=== PATIENT | female | born 1950 | race African-American/Black ===

== ENCOUNTER 2018-11-12 20:21 | Observation (INO) ==
[2018-11-12] MEDS ORDERED: MethylPREDNISolone Sod Succinate Inj 125 MG/2 ML Vial IV.PUSH ONE (21:07)
--- NOTE | 2018-11-12 21:17 | ED ---
HPI General Chief complaint: Chest Pain Stated complaint: poss allergic reaction, hives, chest pain Time Seen by Provider: 11/12/18 20:59 History of Present Illness HPI narrative: 67-year-old female with history of hyperlipidemia presents for evaluation. She reports that she developed a substernal chest pressure at 9:30 AM this morning while she was at [employer]. Initially she thought that may be something was stuck in her throat. She was able to swallow water with no difficulty. The chest pressure has persisted throughout the day. Nothing seems to make it better or worse. She reports that she has taken a total of 162 mg of aspirin. She is denying any shortness of breath, cough, congestion, abdominal pain, diaphoresis, nausea, vomiting. Denies any leg swelling. She has never experienced this type of chest pressure before. No personal history of cardiac disease or known family history. She believes that she had a normal stress test approximately 17 or 18 years ago. In addition the patient is complaining of a pruritic rash which just started this evening. Rash is primarily on the face and the upper chest wall and in the bilateral axilla. The rash is itchy and she tried using [id number] Benadryl cream with no relief. She reports that 2 days ago she ate crab cakes but denies any other dietary changes. Denies any new medications or creams or lotions or detergents. Denies any swelling of the lips or the tongue she has no other complaints at this time. Related Data Home Medications Medication Instructions Recorded Confirmed omeprazole 40 mg PO DAILY 11/12/18 11/12/18 Allergies Allergy/AdvReac Type Severity Reaction Status Date / Time No Known Allergies Allergy Verified 11/12/18 20:32 Review of Systems ROS: all other systems reviewed are negative PMFSH Medical History Medical History GERD (gastroesophageal reflux disease) (Acute) Hx of hysterectomy (Acute) Surgical History Surgical History H/O abdominoplasty (Acute) Hx of section (Acute) Previous back surgery (Acute) Social History Social History Substance History: No History of Abuse Second Hand Smoke Exposure: No Smoking Status: Never smoker How Often Do You Have a Drink Containing Alcohol: 2 to 4 times a month Recent Travel in [facility] within the Last 8 Weeks: No Recent Out of Country Travel within the Last 8 Weeks: No Exam Narrative Exam Narrative: GENERAL: Pleasant well-developed well-nourished female no acute distress SKIN: Warm and dry. There is several scattered wheals noted on the forehead, in the axilla bilaterally in the upper chest wall. No vesicles, no pustules, no petechiae, no purpura HEAD: Atraumatic. Normocephalic. EYES: Pupils equal and round. No scleral icterus. No injection or drainage. ENT: No nasal bleeding or discharge. Mucous membranes pink and moist. No swelling of the lips, tongue, uvula. No sublingual edema. Voice is not hoarse or muffled no stridor or drooling. NECK: Trachea midline. No JVD. CARDIOVASCULAR: Regular rate and rhythm. No murmur appreciated. RESPIRATORY: No accessory muscle use. Clear to auscultation. Breath sounds equal bilaterally. No crackles no wheezing or rhonchi. GASTROINTESTINAL: Abdomen soft, non-tender, nondistended. Hepatic and splenic margins not palpable. MUSCULOSKELETAL: No obvious deformities. No clubbing. No cyanosis. No edema. NEUROLOGICAL: Awake and alert. No obvious cranial nerve deficits. Motor grossly within normal limits. Normal speech. Course Initial Documented Vital Signs Temperature 97.1 F L 11/12/18 20:25 Pulse Rate 60 11/12/18 20:25 Respiratory Rate 20 11/12/18 20:25 Blood Pressure 150/69 H 11/12/18 20:25 Pulse Oximetry 98 11/12/18 20:25 Last Documented Vital Signs Temperature 97.8 F 11/13/18 04:00 Pulse Rate 54 L 11/13/18 04:00 Respiratory Rate 18 11/13/18 04:00 Blood Pressure 113/60 11/13/18 04:00 Pulse Oximetry 96 11/13/18 04:00 Medical Decision Making FIONA Attestation FIONA supervised visit: Yes Attestation: I, Dr. Fonseca, have reviewed the advance practice practitioner's documentation and am in agreement, met with the patient face to face, made the diagnosis, and the medical decision making was done by me. The patient was initially evaluated by Buddy, the FIONA. Please see their complete history and physical. *My assessment and Findings: The patient presents with history of chest pain that began earlier today. The patient additionally in the evening developed an itchy rash. She denies having any shortness of breath. She denies having any tongue or throat swelling. The patient's examination was remarkable for what appeared to be urticaria. Cardiovascular was regular rate and rhythm without murmurs, gallops, or rubs. Lungs were clear to auscultation bilaterally. During the course of the patient's emergency department visit, the patient's history, examination, and differential diagnosis were reviewed with the patient. The patient was placed on a front desk monitor with oximetry and frequent blood pressure monitoring. The patient had IV access obtained and blood work sent for analysis. The patient was initially provided aspirin 162 mg p.o. x1. The patient was given Solu-Medrol 125 mg IV, Benadryl 50 mg IV. The patient's diagnostic studies were reviewed and remarkable for a white count of 5.5, hemoglobin 13.2, platelets 203 with monocytes 9.3, PT PTT within normal limits, chemistry is remarkable for an albumin of 3.3, initial set of cardiac enzymes are negative. CHEST X-RAY: Shows no acute cardiopulmonary disease. The patient's results were discussed with the patient, including the plan of care. I explained that further testing and/ or monitoring is indicated based on the patient's history, examination, and/ or laboratory findings. Therefore, I recommended admission for additional evaluation. The patient expressed understanding and was agreeable with this plan. The patient was admitted to the hospital in stable condition and sent to a bed under the care of the [facility]. [facility] Narrative Medical decision making narrative: The patient was placed on ECG monitoring pulse oximetry. Twelve-lead EKG was obtained revealing sinus rhythm with no acute ST elevation. Lab work, chest x-ray obtained. The patient was given additional 162 mg of aspirin. She was given Solu-Medrol and Benadryl for wheals noted on the upper chest wall and forehead and bilateral axilla. Upon reexamination her chest pressure has resolved. Her initial lab work and imaging studies are reassuring. The etiology of her chest pressure is unknown. Therefore at this point in time the plan is to admit her into the chest pain center for serial cardiac enzymes and rule out purposes. She is agreeable. Medical Screen Exam Complete: Yes Emergency Medical Condition: Yes Differential Diagnosis Differential Diagnosis: Angina, acute coronary syndrome, gastritis, pericarditis , myocarditis, aortic dissection, pneumothorax, hemothorax Lab Data Result diagrams: 11/12/18 20:50 11/12/18 20:50 Lab Results 11/12/18 11/12/1811/12/18 Range/Units 20:50 20:50 20:50 WBC 5.5 (4.0-11.0) th/mm3 RBC 4.72 (4.00-5.30) mil/mm3 Hgb 13.2 (11.6-15.3) gm/dL Hct 39.7 (35.0-46.0) % MCV 84.1 (80.0-100.0) fL MCH 28.0 (27.0-34.0) pg MCHC 33.3 (32.0-36.0) % RDW 14.3 (11.6-17.2) % Plt Count 203 (150-450) th/mm3 MPV 9.5 (7.0-11.0) fL Neut % (Auto) 47.4 (16.0-70.0) % Lymph % (Auto) 40.5 (9.0-44.0) % Rock % (Auto) 9.3 H (0.0-8.0) % Eos % (Auto) 2.3 (0.0-4.0) % Baso % (Auto) 0.5 (0.0-2.0) % Neut # (Auto) 2.6 (1.8-7.7) th/mm3 Lymph # (Auto) 2.2 (1.0-4.8) th/mm3 Rock # (Auto) 0.5 (0.0-0.9) th/mm3 Eos # (Auto) 0.1 (0.0-0.4) th/mm3 Baso # (Auto) 0.0 (0.0-0.2) th/mm3 WBC Differential . Differential Comment Auto diff final PT 10.1 (9.8-11.6) sec INR 1.0 Ratio APTT 24.9 (23.4-31.7) sec Sodium 140 (136-145) meq/L Potassium 4.0 (3.5-5.1) meq/L Chloride 103 (98-107) meq/L Carbon Dioxide 27.5 (21.0-32.0) meq/L Anion Gap 10 (5-15) meq/L BUN 15 (7-18) mg/dL Creatinine 0.68 (0.50-1.00) mg/dL Estimated GFR Greater than 89 (>89) mL/min Random Glucose 93 (74-106) mg/dL Calcium 9.2 (8.5-10.1) mg/dL Magnesium 2.2 (1.5-2.5) mg/dL Total Bilirubin 0.3 (0.2-1.0) mg/dL AST 23 (15-37) U/L ALT 30 (10-53) U/L Alkaline Phosphatase 84 (45-117) U/L Total Creatine Kinase 173 (26-192) U/L CK-MB (CK-2) 1.7 (0.5-3.6) ng/mL Troponin I Less than 0.02 L (0.02-0.05) ng/mL Total Protein 7.9 (6.4-8.2) g/dL Albumin 3.3 L (3.4-5.0) g/dL 11/12/18 11/12/18 11/12/18 Range/Units 20:50 20:50 20:50 WBC (4.0-11.0) th/mm3 RBC (4.00-5.30) mil/mm3 Hgb (11.6-15.3) gm/dL Hct (35.0-46.0) % MCV (80.0-100.0) fL MCH (27.0-34.0) pg MCHC (32.0-36.0) % RDW (11.6-17.2) % Plt Count (150-450) th/mm3 MPV (7.0-11.0) fL Neut % (Auto) (16.0-70.0) % Lymph % (Auto) (9.0-44.0) % Rock % (Auto) (0.0-8.0) % Eos % (Auto) (0.0-4.0) % Baso % (Auto) (0.0-2.0) % Neut # (Auto) (1.8-7.7) th/mm3 Lymph # (Auto) (1.0-4.8) th/mm3 Rock # (Auto) (0.0-0.9) th/mm3 Eos # (Auto) (0.0-0.4) th/mm3 Baso # (Auto) (0.0-0.2) th/mm3 WBC Differential Differential Comment PT (9.8-11.6) sec INR Ratio APTT (23.4-31.7) sec Sodium (136-145) meq/L Potassium (3.5-5.1) meq/L Chloride (98-107) meq/L Carbon Dioxide (21.0-32.0) meq/L Anion Gap (5-15) meq/L BUN (7-18) mg/dL Creatinine (0.50-1.00) mg/dL Estimated GFR (>89) mL/min Random Glucose (74-106) mg/dL Calcium (8.5-10.1) mg/dL Magnesium Cancelled (1.5-2.5) mg/dL Total Bilirubin (0.2-1.0) mg/dL AST (15-37) U/L ALT (10-53) U/L Alkaline Phosphatase (45-117) U/L Total Creatine Kinase Cancelled (26-192) U/L CK-MB (CK-2) (0.5-3.6) ng/mL Troponin I Cancelled (0.02-0.05) ng/mL Total Protein (6.4-8.2) g/dL Albumin (3.4-5.0) g/dL 11/13/18 11/13/18 Range/Units 01:00 02:30 WBC (4.0-11.0) th/mm3 RBC (4.00-5.30) mil/mm3 Hgb (11.6-15.3) gm/dL Hct (35.0-46.0) % MCV (80.0-100.0) fL MCH (27.0-34.0) pg MCHC (32.0-36.0) % RDW (11.6-17.2) % Plt Count (150-450) th/mm3 MPV (7.0-11.0) fL Neut % (Auto) (16.0-70.0) % Lymph % (Auto) (9.0-44.0) % Rock % (Auto) (0.0-8.0) % Eos % (Auto) (0.0-4.0) % Baso % (Auto) (0.0-2.0) % Neut # (Auto) (1.8-7.7) th/mm3 Lymph # (Auto) (1.0-4.8) th/mm3 Rock # (Auto) (0.0-0.9) th/mm3 Eos # (Auto) (0.0-0.4) th/mm3 Baso # (Auto) (0.0-0.2) th/mm3 WBC Differential Differential Comment PT (9.8-11.6) sec INR Ratio APTT (23.4-31.7) sec Sodium (136-145) meq/L Potassium (3.5-5.1) meq/L Chloride (98-107) meq/L Carbon Dioxide (21.0-32.0) meq/L Anion Gap (5-15) meq/L BUN (7-18) mg/dL Creatinine (0.50-1.00) mg/dL Estimated GFR (>89) mL/min Random Glucose (74-106) mg/dL Calcium (8.5-10.1) mg/dL Magnesium (1.5-2.5) mg/dL Total Bilirubin (0.2-1.0) mg/dL AST (15-37) U/L ALT (10-53) U/L Alkaline Phosphatase (45-117) U/L Total Creatine Kinase 164 159 (26-192) U/L CK-MB (CK-2) (0.5-3.6) ng/mL Troponin I Less than 0.02 L Less than 0.02 L (0.02-0.05) ng/mL Total Protein (6.4-8.2) g/dL Albumin (3.4-5.0) g/dL Imaging Data Radiologist's impression: Chest X-Ray 11/12/18 21:07 CONCLUSION: The lungs are clear. Discharge Plan Discharge Disposition Patient Disposition: ED Admit(ED Internal Use Only) Discharge Condition Condition: Stable Discharge Order Discharge Orders: ED Use Only Admit Order (Routine); Ordered 11/12/18 Ordered By: Buddy Morin Discharge Details Diagnosis: Chest pain, Hives Physicians Team ED Provider: Brooklynn Fonseca ED Midlevel Provider: Buddy Morin Primary Care Provider: Barbara Ortega Attending Provider: Luis Carlton Other Providers: [employer] Status ED Status: Left Department Discharge Information Discharge Date/Time: 11/12/18 23:20
--- NOTE | 2018-11-12 21:20 | XR ---
EXAM DATE: 11/12/2018 9:16 PM EST AGE/SEX: 67 years / Female INDICATIONS: Chest pain CLINICAL DATA: This is the patient's initial encounter. Patient reports that signs and symptoms have been present for 1 day and indicates a pain score of 5/10. MEDICAL/SURGICAL HISTORY: None. None. COMPARISON: No prior exams available for comparison. FINDINGS: A single AP view of the chest demonstrates the lungs to be symmetrically aerated without evidence of mass, infiltrate or effusion. The cardiomediastinal contours are unremarkable. Osseous structures a re intact. CONCLUSION: The lungs are clear. Electronically signed by: Chano Cabrera MD Board Certified Radiologist 11/12/2018 9:19 PM EST
[2018-11-12 21:29] LABS: Baso % (Auto) 0.5 % (0.0-2.0); Eos # (Auto) 0.1 th/mm3 (0.0-0.4); Eos % (Auto) 2.3 % (0.0-4.0); Hematocrit 39.7 % (35.0-46.0); Hemoglobin 13.2 gm/dL (11.6-15.3); Lymph # (Auto) 2.2 th/mm3 (1.0-4.8); Lymph % (Auto) 40.5 % (9.0-44.0); Mean Corpuscular HGB Conc 33.3 % (32.0-36.0); Mean Corpuscular Volume 84.1 fL (80.0-100.0); Mean Platelet Volume 9.5 fL (7.0-11.0); Mono # (Auto) 0.5 th/mm3 (0.0-0.9); Mono % (Auto) 9.3 % (0.0-8.0); Neut # (Auto) 2.6 th/mm3 (1.8-7.7); Neut % (Auto) 47.4 % (16.0-70.0); Platelet Count 203 th/mm3 (150-450); Red Blood Count 4.72 mil/mm3 (4.00-5.30); Red Cell Distribution Width 14.3 % (11.6-17.2); White Blood Count 5.5 th/mm3 (4.0-11.0)
[2018-11-12 21:46] LABS: Albumin 3.3 g/dL (3.4-5.0); Anion Gap 10 meq/L (5-15); Aspartate Aminotransferase 23 U/L (15-37); Blood Urea Nitrogen 15 mg/dL (7-18); Calcium 9.2 mg/dL (8.5-10.1); Carbon Dioxide 27.5 meq/L (21.0-32.0); Chloride 103 meq/L (98-107); Glomerular Filtration Rate Greater Than 89 mL/min (>89); Glucose,Random 93 mg/dL (74-106); Magnesium 2.2 mg/dL (1.5-2.5); Sodium 140 meq/L (136-145)
[2018-11-12 21:47] LABS: Activated Partial Thrombo Time 24.9 sec (23.4-31.7); Alanine Aminotransferase 30 U/L (10-53); Prothrombin Time 10.1 sec (9.8-11.6)
[2018-11-12 21:51] LABS: Alkaline Phosphatase 84 U/L (45-117); Creatine Kinase 173 U/L (26-192); Total Protein 7.9 g/dL (6.4-8.2)
[2018-11-12 22:04] LABS: Creatine Kinase MB 1.7 ng/mL (0.5-3.6)
[2018-11-13 01:36] LABS: Creatine Kinase 164 U/L (26-192)
[2018-11-13 02:55] LABS: Creatine Kinase 159 U/L (26-192)
[2018-11-13 04:40] VITALS: PULSE 54
[2018-11-13 08:20] VITALS: BP 126/74; RESP 16; TEMP 98.9; O2SAT 95
--- NOTE | 2018-11-13 08:30 | P.HPCA ---
History of Present Illness Primary Care Physician: Barbara Ortega MD Chief Complaint: Chest pain History of Present Illness: 67 year old female with history of GERD presents emergency room for further evaluation of nonexertional substernal chest pressure. Onset 9:30 AM. Location substernal. Characterized as pressure, also described as a feeling of something being stuck. No radiation. No associated symptoms of nausea, vomiting , dyspnea, diaphoresis. Duration 4.5 hours. No precipitating or relieving factors. No particular movement or position makes pain better or worse. Denies similar pain in the past. Discomfort resolved around 2 PM. Once discomfort resolved reports hives bilateral axilla area, forehead, and upper trunk. Hives and itching continued therefore decided to come ER at 730pm. No further chest discomfort since 2 p.m. Reports hives and itchy resolved after receiving IV Benadryl. No new detergents, food, or known allergens. No recent illness, fever, or cough. Past cardiac testing No recent cardiac testing Social history No known hypertension, hyperlipidemia, diabetes, or coronary artery disease. Lifelong non-smoker. No alcohol or recreational drug use. Endorses an active lifestyle, participates line dancing 4 days a week. Family history Noncontributory for early onset cardiovascular disease. - Diagnosis (1) Atypical chest pain (2) Urticaria (3) GERD (gastroesophageal reflux disease) Review of Systems All other systems reviewed negative except as stated in HPI PMFSH - History History Provided By: Patient - Medical History Medical History: Medical History (Last Reviewed 11/13/18 @ 09:28 by SIDNEY Valladares) GERD (gastroesophageal reflux disease) Hx of hysterectomy - Surgical History Surgical History: Surgical History (Last Reviewed 11/13/18 @ 09:28 by SIDNEY Valladares) H/O abdominoplasty Hx of section Previous back surgery - Tobacco History Second Hand Smoke Exposure: No Tobacco Use In Past 30 Days: No Smoking Status: Never smoker - Alcohol History How Often Do You Have a Drink Containing Alcohol: 2 to 4 times a month - Substance Use History Substance History: No History of Abuse - Travel History Recent Travel in the [place] Within the Last 8 Weeks: No Recent Travel Out of the Country Within the Last 8 Weeks: No - Immunization History Tetanus Immunization: Unsure Medications and Allergies Active Medications: Active Medications Sodium Chloride (Ns Flush) 2 ml IV.FLUSH BID FREDRICK Sodium Chloride (Ns Flush) 2 ml IV.FLUSH PRN PRN PRN Reason: FLUSH AFTER USING IV ACCESS Allergies Allergy/AdvReac Type Severity Reaction Status Date / Time No Known Allergies Allergy Verified 11/12/18 20:32 Home Medications Medication Instructions Recorded Confirmed Type omeprazole 40 mg PO DAILY 11/12/18 11/12/18 History Exam Vital signs: Vital Signs 11/12/18 20:25 11/12/18 21:38 11/12/18 22:30 Temperature 97.1 F L Pulse Rate 60 60 Respiratory Rate 20 16 1 L Blood Pressure 150/69 H 173/111 H Pulse Oximetry 98 97 11/12/18 23:03 11/13/18 00:00 11/13/18 00:55 Temperature 97.8 F Pulse Rate 50 L 56 L 54 L Respiratory Rate 18 18 Blood Pressure 145/70 H 123/65 Pulse Oximetry 98 97 11/13/18 04:00 11/13/18 04:30 11/13/18 08:00 Temperature 97.8 F 98.9 F Pulse Rate 54 L 54 L 54 L Respiratory Rate 18 16 Blood Pressure 113/60 126/74 Pulse Oximetry 96 95 Intake & Output 11/12/18 11/13/18 11/13/18 18:59 06:59 18:59 Weight 91.6 kg Other: # Voids 2 Date of Last Bowel Movement 11/12/18 Weight On Admission 91.6 kg Narrative: GENERAL: Alert WN, WD, NAD, pleasant, -Citizen Of [place] female HEAD: NC, AT EYES: Sclera clear, conjunctiva without injection ENT: Mucous membranes pink and moist CV: RRR, without murmur, rub, gallop, S1-S2. RESP: Clear lungs throughout bilateral, no crackles, wheeze, rhonchi, symmetrical chest rise, nonlabored, able to speak in full sentences ABD: Soft, NT, ND, no masses, positive bowel tones EXT: Pulses +2x4, no dependent edema MS: Normal tone x4 extremities, nontender, no obvious deformities, full range of motion NEURO: Motor strength 5/5 PSYCH: A+O x3, pleasant affect, appropriate speech, mood, insight and judgment SKIN: Normal turgor, normal texture, no lesions, no rashes Results 11/12/18 20:50 11/12/18 20:50 Cardiac Enzymes 11/12/18 11/12/18 11/13/18 Range/Units 20:50 20:50 01:00 AST 23 (15-37) U/L CK-MB (CK-2) 1.7 (0.5-3.6) ng/mL Troponin I Less than 0.02 L Cancelled Less than 0.02 L (0.02-0.05) ng/mL 11/13/18 Range/Units 02:30 AST (15-37) U/L CK-MB (CK-2) (0.5-3.6) ng/mL Troponin I Less than 0.02 L (0.02-0.05) ng/mL Coagulation 11/12/18 Range/Units 20:50 PT 10.1 (9.8-11.6) sec APTT 24.9 (23.4-31.7) sec CBC 11/12/18 Range/Units 20:50 WBC 5.5 (4.0-11.0) th/mm3 RBC 4.72 (4.00-5.30) mil/mm3 Hgb 13.2 (11.6-15.3) gm/dL Hct 39.7 (35.0-46.0) % Plt Count 203 (150-450) th/mm3 Neut # (Auto) 2.6 (1.8-7.7) th/mm3 Lymph # (Auto) 2.2 (1.0-4.8) th/mm3 Stewart # (Auto) 0.5 (0.0-0.9) th/mm3 Eos # (Auto) 0.1 (0.0-0.4) th/mm3 Baso # (Auto) 0.0 (0.0-0.2) th/mm3 Comprehensive Metabolic Panel 11/12/18 Range/Units 20:50 Sodium 140 (136-145) meq/L Potassium 4.0 (3.5-5.1) meq/L Chloride 103 (98-107) meq/L Carbon Dioxide 27.5 (21.0-32.0) meq/L BUN 15 (7-18) mg/dL Creatinine 0.68 (0.50-1.00) mg/dL Calcium 9.2 (8.5-10.1) mg/dL AST 23 (15-37) U/L ALT 30 (10-53) U/L Alkaline Phosphatase 84 (45-117) U/L Total Protein 7.9 (6.4-8.2) g/dL Albumin 3.3 L (3.4-5.0) g/dL Intake and Output 11/12/18 11/13/18 11/13/18 22:59 06:59 14:59 Other: # Voids 2 Date of Last Bowel Movement 11/12/18 Weight 93.44 kg 91.6 kg Weight On Admission 91.6 kg - Imaging and Cardiology Imaging: Impressions Chest X-Ray 11/12/18 21:07 CONCLUSION: The lungs are clear. EKG interpretations - EKG EKG results cardiology: sinus rhythm, normal axis, normal QRS, normal ST/T Caprini VTE Risk Assessment Caprini VTE Risk Assessment: Moderate/High Risk (score >= 2) Caprini Risk Assessment Model: Point Value = 1 Point Value = 2 Point Value = 3 Point Value = 5 Age 41-60 Minor surgery BMI > 25 kg/m2 Swollen legs Varicose veins or History of unexplained or recurrent spontaneous Oral contraceptives or hormone replacement Sepsis (< 1 month) Serious lung disease, including pneumonia (< 1 month) Abnormal pulmonary function Acute myocardial infarction Congestive heart failure (< 1 month) History of inflammatory bowel disease Medical patient at bed rest Age 61-74 Arthroscopic surgery Major open surgery (> 45 min) Laparoscopic surgery (> 45 min) Malignancy Confined to bed (> 72 hours) Immobilizing plaster cast Central venous access Age >= 75 History of VTE Family history of VTE Factor V Leiden Prothrombin [id number] Lupus anticoagulant Anticardiolipin antibodies Elevated serum homocysteine Heparin-induced thrombocytopenia Other congenital or acquired thrombophilia Stroke (< 1 month) Elective arthroplasty Hip, pelvis, or leg fracture Acute spinal cord injury (< 1 month) Prophylaxis Regimen: Total Risk Factor Score Risk Level Prophylaxis Regimen 0-1 Low Early ambulation 2 Moderate Order ONE of the following: *Sequential Compression Device (SCD) *Heparin 5000 units SQ BID 3-4 Higher Order ONE of the following medications: *Heparin 5000 units SQ TID *Enoxaparin/Lovenox 40 mg SQ daily (WT < 150 kg, CrCl > 30 mL/min) *Enoxaparin/Lovenox 30 mg SQ daily (WT < 150 kg, CrCl > 10-29 mL/min) *Enoxaparin/Lovenox 30 mg SQ BID (WT < 150 kg, CrCl > 30 mL/min) AND/OR *Sequential Compression Device (SCD) 5 or more Highest Order ONE of the following medications: *Heparin 5000 units SQ TID (Preferred with Epidurals) *Enoxaparin/Lovenox 40 mg SQ daily (WT < 150 kg, CrCl > 30 mL/min) *Enoxaparin/Lovenox 30 mg SQ daily (WT < 150 kg, CrCl > 10-29 mL/min) *Enoxaparin/Lovenox 30 mg SQ BID (WT < 150 kg, CrCl > 30 mL/min) AND *Sequential Compression Device (SCD) Assessment and Plan - Assessment (1) Atypical chest pain Code(s): R07.89 - Other chest pain Status: Acute Plan: Admitted chest pain center. ACS ruled out 3 sets of EKGs and cardiac enzymes. Seen and evaluated by Dr. Shahid Bender. Discomfort atypical cardiac etiology. Proceed with exercise cardiac stress testing. If unremarkable, plans are to discharge home with follow-up primary care provider. (2) Urticaria Code(s): L50.9 - Urticaria, unspecified Status: Acute Plan: Resolved. Follow-up with primary care provider. Encouraged to to determine allergen, made aware unlikely related to crab cake eaten on Tuesday. (3) GERD (gastroesophageal reflux disease) Code(s): K21.9 - Gastro-esophageal reflux disease without esophagitis Status: Chronic Plan: Continue omeprazole. Chest pressure may be related to GI. Once cardiac etiology ruled out will be instructed to follow-up with primary care provider to determine if any further GI workup indicated. H&P: Quality - VTE Deep Vein Thrombosis/Pulmonary Embolism Present on Admission: No (3) GERD (gastroesophageal reflux disease) Qualifiers: Esophagitis presence: esophagitis presence not specified Qualified Code(s): K21.9 - Gastro-esophageal reflux disease without esophagitis
--- NOTE | 2018-11-13 08:43 | ECG ---
Date Performed: 11/13/2018 Time Performed: 02:56:29 PTAGE: 67 years EKG: SINUS BRADYCARDIA BORDERLINE ECG PREVIOUS TRACING : 11/12/2018 20.41 Since previous tracing, no significant change noted DOCTOR: Shahid Bender Interpretating Date/Time 11/13/2018 08:42:53
--- NOTE | 2018-11-13 08:45 | ECG ---
Date Performed: 11/13/2018 Time Performed: 01:25:41 PTAGE: 67 years EKG: SINUS BRADYCARDIA BORDERLINE ECG NO PREVIOUS TRACING DOCTOR: Shahid Bender Interpretating Date/Time 11/13/2018 08:45:07
--- NOTE | 2018-11-13 08:46 | ECG ---
Date Performed: 11/12/2018 Time Performed: 20:41:34 PTAGE: 67 years EKG: SINUS BRADYCARDIA BORDERLINE LEFT AXIS DEVIATION BORDERLINE ECG PREVIOUS TRACING : 07/25/1996 08.41 Since previous tracing, no significant change noted DOCTOR: Shahid Bender Interpretating Date/Time 11/13/2018 08:46:04
--- NOTE | 2018-11-15 15:10 | TR ---
Date Performed: 11/13/2018 Time Performed: 10:15:16 DOCTOR: Shahid Bender DRUG LIST: CLINICAL HISTORY: REASON FOR TEST: REASON FOR ENDING: OBSERVATION: CONCLUSION: Eugenio protocol completed. Stopped sec to exceeding target heart rate and leg fatigue . Maximum LC=038 Max HR Achieved=94.0% Maximum FC=916/84 Total Exercise Time=6:02. No reprod chest d iscomfort. Infrequent PVC. Normal bp response. Good exercie tolerance. Recovery quick and unremarkabl e. COMMENTS: Patient exercised using the Eugenio protocol. No electrocardiographic changes were seen to suggest ischemia. Hemodynamic response to exercise was normal. No significant arrhythmia was prese nt.
== END 2018-11-13 11:30 | disposition home or self-care (01) ==
LOC: NEDA 20:21 → NEPC 20:21 → NEPFCDU 23:20
CPT/HCPCS: 71010; 71045; 80053; 82550; 82552; 83735; 84484; 85025; 85610; 85730; 90774; 90775; 90784; 93005; 93017; 96374; 96375; 99285; C8952; G0378; J1200; J2930